=== PATIENT | female | born 1955 | race Caucasian/White ===

== ENCOUNTER → 2016-12-03 | Outpatient (CLI) | payer MEDICARE, OTHER | LOC: GMAB 11:14 | PROVIDERS: ATTEND Family Medicine | DX: E03.9 Hypothyroidism, unspecified (principal) ==

== ENCOUNTER → 2016-12-04 | Outpatient (CLI) | payer MEDICARE, OTHER | LOC: GMAB 17:37 | PROVIDERS: ATTEND Family Medicine | DX: M25.511 Pain in right shoulder (principal) ==

== ENCOUNTER → 2017-05-31 | Outpatient (CLI) | payer MEDICARE, OTHER | LOC: GMAB 10:48 | PROVIDERS: ATTEND Family Medicine | DX: R79.0 Abnormal level of blood mineral (principal); E03.9 Hypothyroidism, unspecified; R06.02 Shortness of breath; E11.9 Type 2 diabetes mellitus without complications ==

== ENCOUNTER → 2018-07-23 | Outpatient (CLI) | payer OTHER | LOC: GMAE 10:41 | PROVIDERS: ATTEND Family Medicine | DX: E03.9 Hypothyroidism, unspecified (principal); I10 Essential (primary) hypertension ==

== ENCOUNTER → 2019-01-15 | Outpatient (CLI) | payer OTHER | LOC: GMAE 10:50 | PROVIDERS: ATTEND Family Medicine | DX: R79.0 Abnormal level of blood mineral (principal); E03.9 Hypothyroidism, unspecified ==

== ENCOUNTER → 2019-03-10 | Outpatient (CLI) | payer OTHER ==
--- NOTE | 2019-03-10 17:27 | US ---
EXAM DESCRIPTION: Soft Tissue,Extremity CLINICAL HISTORY: 63 years Female, HAND PAIN COMPARISON: None. FINDINGS: Sonogram of the left hand palm at the base of the ring finger was performed in the area palpable concern. Normal flexor tendon is seen. Normal reflect surfaces of the bones with normal appearance of the joint. A small hypoechoic area in the subcutaneous soft tissues superficially is measured 0.5 x 0.2 x 0.4 cm. Another adjacent small lesion slightly more hypoechoic and flattened in appearance measures 0.4 x 0.1 x 0.6 cm. These could be followed. If there is growth then biopsy could be performed. The imaging findings are nonspecific and could represent small granulomas or focal fat necrosis. Residuum of previous infection or hemorrhage but also be considered. IMPRESSION: Nonspecific subcutaneous hypoechoic nodules in the area of palpable concern. See above. Electronically signed by: Paolo German MD 03/10/2019 5:23 PM CDT
== END ==
LOC: US 16:05
PROVIDERS: ATTEND Family Medicine
DX: M79.642 Pain in left hand (principal); R22.2 Localized swelling, mass and lump, trunk

== ENCOUNTER → 2019-06-10 | Outpatient (CLI) | payer OTHER | LOC: GMAE 17:12 | PROVIDERS: ATTEND Family Medicine | DX: R94.5 Abnormal results of liver function studies (principal) ==

== ENCOUNTER → 2019-06-12 | Outpatient (CLI) | payer OTHER ==
--- NOTE | 2019-06-12 16:39 | US ---
EXAM DESCRIPTION: Liver: ULTRASOUND. CLINICAL HISTORY: ELEVATED LFTs COMPARISON: Ultrasound abdomen 08/15/2016. TECHNIQUE: Transabdominal scannin-dimensional and Doppler modes. FINDINGS: Gallbladder: normal size, shape, echogenicity; no intraluminal stones or sludge. Possible phrygian cap, a normal variant. No fluid around the gallbladder. No wall thickening. 2.6 mm. Non-tender with transducer pressure. Common bile duct: caliber 4.6 mm within normal limits. Liver: normal echogenicity; contour liver capsule smooth where seen. No fluid around the liver. Intrahepatic biliary ducts normal caliber. Doppler hepatopedal flow portal vein. 8 mm. Long axis right lobe 11.3 cm. Pancreas: normal size and echogenicity. Duct not seen. Right kidney: long axis measures 9.5 cm. Normal cortical echogenicity. Normal cortical thickness. No hydronephrosis IMPRESSION: Normal ultrasound of the right upper quadrant of the abdomen. Electronically signed by: Kendall Nixon MD 06/12/2019 4:38 PM CDT
== END ==
LOC: US 09:02
PROVIDERS: ATTEND Family Medicine
DX: R94.5 Abnormal results of liver function studies (principal)

== ENCOUNTER → 2020-04-29 | Outpatient (CLI) | payer OTHER | LOC: GMAE 12:04 | PROVIDERS: ATTEND Family Medicine | DX: M25.462 Effusion, left knee (principal); E55.9 Vitamin D deficiency, unspecified ==